=== PATIENT | female | born 1945 | race Caucasian/White ===

== ENCOUNTER → 2022-04-13 09:36 | Outpatient (CLI) | payer OTHER, SELFPAY ==
--- NOTE | ~2022-04-13 | XR_ITS ---
EXAM: XR_CERV2-3V_CR DATE: 04/13/2022 10:07 HISTORY: M54.2 - Cervicalgia . COMPARISON: None available. FINDINGS: Craniocervical association and atlantoaxial joint are intact. No prevertebral soft tissue swelling. 2 mm anterolisthesis at C3-4. 2 mm retrolisthesis at C5-6. Vertebral body heights are maint ained. Multilevel degenerative disc space narrowing and marginal osteophytosis, moderate at C5-6. Mul tilevel facet hypertrophy. IMPRESSION: Multilevel grade 1 listheses, detailed above. Multilevel degenerative disc disease, moder ate at C5-6. Multilevel facet arthropathy. Reviewed, dictated and finalized at location K. IMPRESSION: Multilevel grade 1 listheses, detailed above. Multilevel degenerati ve disc disease, moderate at C5-6. Multilevel facet arthropathy.
--- NOTE | ~2022-04-13 | XR_ITS ---
XR knee RT min 4V 04/13/2022 10:07 Indication: Right knee pain Procedure: 5 views right knee Comparison: No prior studies for comparison. Findings: There is moderate-severe osteoarthritis of the right knee. No fracture, subluxation or disl ocation. No significant joint effusion. Osteopenia. Impression: 1: Moderate-severe osteoarthritis of the right knee. Reviewed, dictated and finalized at location A. Impression: 1: Moderate-severe osteoarthritis of the right knee.
== END ==
PROVIDERS: PCP Clinical Nurse Specialist; Visit Provider Clinical Nurse Specialist
DX: M25.569 Pain in unspecified knee (principal); M47.812 Spondylosis without myelopathy or radiculopathy, cervical region; M50.322 Other cervical disc degeneration at C5-C6 level; M12.88 Other specific arthropathies, not elsewhere classified, other specified site; M17.11 Unilateral primary osteoarthritis, right knee
CPT/HCPCS: 72040; 73564

== ENCOUNTER 2022-04-27 08:08 | Outpatient (CLI) | payer OTHER, SELFPAY ==
--- NOTE | ~2022-04-27 | DEXA_ITS ---
Bone Density Report Name: MINNIE IBRAHIM Age: 76 Sex: Female Ethnicity: Date of : 1945 Indication: postmenopausal; screening for osteoporosis; Referring Provider: MARY TAYLOR Study: Bone densitometry was performed. Exam Date: April 27, 2022 Accession number: [id number] Bone Density: Region BMD T-score Z-score Classification AP Spine(L1, L2, L3) 0.844 -1.6 1.0 Osteopenia Femoral Neck (Left) 0.720 -1.2 1.1 Osteopenia Total Hip (Left) 0.895 -0.4 1.6 Normal Femoral Neck (Right) 0.727 -1.1 1.1 Osteopenia Total Hip (Right) 0.937 0.0 1.9 Normal Total Hip Mean 0.916 -0.2 1.8 Normal World Health Organization criteria for BMD impression classify patients as: Normal (T-score at or above -1.0), Osteopenia (T-score between -1.0 and -2.5), or Osteoporosis (T-score at or below -2.5). Clinical Information Provided by Patient: Has used the following medications: Vitamin D, Calcium Patient maximum height was 63 Menopause Age: 52 No regular weight bearing exercise Onset of menses at age 11 Number of children 4 Impression: The patient has low bone mass, based on the Total Spine T-score. Discussion: BONE DENSITY IS LOW AT ONE OR MORE SKELETAL SITES. This patient's lowest T-score is low at one or more skeletal sites. It meets the World Health Organization's (WHO) criteria for ?low bone mass? (T-score between -1.0 and -2.5). The patient's 10-year risk of fracture as calculated by FRAX is less than the threshold where pharmacological therapy is recommended by the National Osteoporosis Foundation (NOF). However, all treatment decisions require clinical judgment and consideration of individual patient factors, including patient preferences, comorbidities, previous drug use, risk factors not captured in the FRAX model (e.g., frailty, falls, vitamin D deficiency, increased bone turnover, interval significant decline in bone density) and possible under or overestimation of fracture risk by FRAX. The patient should follow a healthful lifestyle (good nutrition with adequate calcium and vitamin D, and appropriate weight-bearing exercise). Follow-Up: Consider repeating this study in 2 to 3 years to reassess this patient's status, or sooner if there is some new clinical indication. Reported by: ALEJANDRA on 05/01/2022 10:13:00 AM. Reviewed, dictated and finalized at location A. [employer] [facility]
== END 2022-04-27 08:09 | disposition home or self-care (01) ==
LOC: ANHIMG 08:13
PROVIDERS: PCP Clinical Nurse Specialist; Visit Provider Clinical Nurse Specialist
DX: Z78.0 Asymptomatic menopausal state (principal); M85.88 Other specified disorders of bone density and structure, other site; M85.852 Other specified disorders of bone density and structure, left thigh; M85.851 Other specified disorders of bone density and structure, right thigh
CPT/HCPCS: 77080

== ENCOUNTER 2022-11-27 20:18 | Observation (INO) | payer OTHER, SELFPAY ==
--- NOTE | ~2022-11-27 | CT_ITS ---
EXAMINATION: CT soft tissue neck w con DATE: 11/27/2022 22:37 INDICATION: Right-sided neck pain and swelling. TECHNIQUE: Computed tomography (CT) of the neck was performed with 75 mL Omnipaque-350 intravenous co ntrast. Automated exposure control and iterative reconstruction technique were employed. The dose-xavier gth product was 567.86 mGy-cm. COMPARISON: None FINDINGS: The thyroid gland is unremarkable. Mild enlargement and hyperenhancement of the right parotid gland . No parotid mass or calcification detected. Asymmetric submandibular glands. There is no cervical l ymphadenopathy. There are no masses identified. The superior mediastinum is unremarkable. The a irway is unremarkable. Parapharyngeal and pre-glottic fat planes are preserved. Mild arch ectasia and calcification. Ulcerative plaques present within the aortic arch. The orbits are unremarkable. Visualized sinuses and mastoid air cells are well aerated. Biapical pleural scarring. Mosaic atte nuation in the lungs. There is cervical spondylosis. IMPRESSION: 1. Right parotiditis. 2. Mosaic attenuation in the lungs which can be seen with asthma, bronchiolitis obliterans, hypersens itivity pneumonitis, and chronic thromboembolic disease. Reviewed, dictated and finalized at location K. IMPRESSION: 1. Right parotiditis. 2. Mosaic attenuation in the lungs which can be seen with asthma, bronchiolitis obliterans, hypersensitivity pneumonitis, and chronic thromboembolic disease.
[2022-11-27 20:22] VITALS: BP 139/67; PULSE 80; RESP 18; TEMP 36.4; O2SAT 96
[2022-11-27 21:16] VITALS: BP 118/62; PULSE 79; O2SAT 96
[2022-11-27 21:31] VITALS: BP 117/64; PULSE 78; O2SAT 94
[2022-11-27 21:49] LABS: Basophils Percent Auto 0.5 % (0.2-1.2); Eosinophils Absolute Auto 0.2 K/mm3 (0-0.3); Eosinophils Percent Auto 2.1 % (0-4.4); Hematocrit 41.4 % (37.0-47.0); Hemoglobin 13.8 g/dL (12.0-15.0); Immature Granulocyte Absolute 0.02 K/mm3 (0.00-0.031); Immature Granulocyte Percent A 0.2 % (0-0.5); Lymphocytes Absolute Auto 2.03 K/mm3 (0.9-3.2); Lymphocytes Percent Auto 24.9 % (18.3-44.2); Mean Corpuscular HGB Conc 33.3 g/dl (32-36); Mean Corpuscular Volume 96.1 fl (80-100); Monocytes Absolute Auto 0.5 K/mm3 (0.1-0.6); Monocytes Percent Auto 6.3 % (2.6-8.5); Neutrophils Absolute Auto 5.4 K/mm3 (1.3-6.7); Platelet Count Result 207 k/mm3 (150-375); Red Blood Count 4.31 M/mm3 (4.2-5.4); Red Cell Distribution Width 12.3 % (11.5-14.5); White Blood Count 8.2 K/mm3 (4.5-10.0)
[2022-11-27 21:59] LABS: Partial Thromboplastin Time 25.4 SECONDS (22.3-36.8); Prothrombin Time 13.7 Seconds (11.1-14.7)
[2022-11-27 22:01] VITALS: BP 117/65; O2SAT 93
[2022-11-27 22:03] LABS: Lactic Acid Reflex 3.1 mmol/L (0.7-2.0)
[2022-11-27 22:13] LABS: Alanine Aminotransferase 36 U/L (6-35); Albumin Level 4.5 g/dL (3.5-5.1); Alkaline Phosphatase 48 U/L (38-126); Anion Gap 13 mmol/L (8-16); Aspartate Amino Transferase 32 U/L (14-36); Bilirubin,Total 0.6 mg/dL (0.2-1.3); Blood Urea Nitrogen 21 mg/dL (7-17); Carbon Dioxide 24 mmol/L (22-30); Chloride 105 mmol/L (98-107); Estimated CRCL calculation 66 ml/min; Estimated Glomerular Filt Rate > 60; Glucose 168 mg/dL (65-110); Potassium 3.4 mmol/L (3.4-5.0); Sodium 142 mmol/L (137-145)
[2022-11-27 22:16] VITALS: BP 126/69; O2SAT 93
--- NOTE | 2022-11-27 23:08 | PM.IMHP ---
H&P: HPI History of Present Illness Date/Time: 11/27/22 23:08 Chief Complaint: Right neck pain Narrative: This is a 77-year-old female with past medical history significant for hypertension, glaucoma, dyslipidemia. Patient was brought to the emergency room for evaluation by her son due to right side of her neck tissue swelling and pain with swallowing of 1 day duration. According to son who is at bedside were who has provided all the history and has translated for his mom she has been her usual state of health, no fevers, no rigors, no chills ,no cough, no sputum production, no nausea, no vomiting, no diarrhea, no abdominal pain, no chest pain. However while patient was still in the emergency room ambulated to the bathroom upon returning to her stretcher complained of retrosternal chest pain with jaw pain and her heart rate was in the 100 and 50s she was found to have AFib a flutter placed on Cardizem drip and admitted to IMU. Preliminary workup was significant for CT of soft tissue of the neck was reported as: EXAMINATION: CT soft tissue neck w con DATE: 11/27/2022 22:37 INDICATION: Right-sided neck pain and swelling. TECHNIQUE: Computed tomography (CT) of the neck was performed with 75 mL Omnipaque-350 intravenous contrast. Automated exposure control and iterative reconstruction technique were employed. The dose-length product was 567.86 mGy-cm. COMPARISON: None FINDINGS: The thyroid gland is unremarkable. ? Mild enlargement and hyperenhancement of the right parotid gland. No parotid mass or calcification detected. Asymmetric submandibular glands.? There is no cervical lymphadenopathy.? There are no masses identified.? ? The superior mediastinum is unremarkable. ? The airway is unremarkable. ? Parapharyngeal and pre-glottic fat planes are preserved. ? Mild arch ectasia and calcification. Ulcerative plaques present within the aortic arch.? The orbits are unremarkable. ? Visualized sinuses and mastoid air cells are well aerated. ? Biapical pleural scarring. Mosaic attenuation in the lungs.? There is cervical spondylosis. IMPRESSION: 1. Right parotiditis. 2. Mosaic attenuation in the lungs which can be seen with asthma, bronchiolitis obliterans, hypersensitivity pneumonitis, and chronic thromboembolic disease. Review of Systems Review of Systems: Right-side of the neck swelling tenderness and pain with swallowing Constitutional: Constitutional: Denies chills, Denies fever(s) and Denies night sweats Eyes: Eyes: Denies change in vision ENT: Reports system reviewed and no additional complaints, except as documented, Reports as per HPI, Denies nasal congestion, Denies nasal discharge, Denies nasal obstruction, Reports neck mass, Reports neck pain and Reports odynophagia Cardiovascular: Cardiovascular: Reports chest pain, Reports irregular heart rhythm, Reports radiating jaw, neck or arm pain, Reports palpitations and Reports dyspnea Respiratory: Respiratory: Denies chest congestion, Denies cough and Denies pain on inspiration Gastrointestinal: Gastrointestinal: Denies abdominal pain, Denies dyspepsia, Denies heartburn, Denies diarrhea, Denies nausea and Denies vomiting Genitourinary: Genitourinary: Reports no additional female genitourinary complaints, Reports as per HPI and Denies dysuria Musculoskeletal: Musculoskeletal: Reports joint swelling and Reports other (Ambulates with cane) Integumentary/Breasts: Skin/Breast: Denies rash Neurologic: Denies focal weakness and Denies Sensory deficit (Neuro) Psychiatric: Psychiatric: Reports no additional psychiatric complaints and Reports as per HPI Endocrine: Endocrine: Denies cold intolerance, Denies flushing, Denies heat intolerance, Denies polyphagia, Denies polydipsia and Denies palpitations Hematologic/Lymphatic: Hematologic/Lymphatic: Reports no additional hematologic/lymphatic complaints and Reports as per HPI Allergic/Immunologic: Allergic/Immunologic: Reports no additio
--- NOTE | 2022-11-27 23:08 | ED.GENADULT ---
HPI - General Adult General Chief complaint: Neck Pain/Injury Stated complaint: right neck pain, headache Time Seen by Provider: 11/27/22 20:59 History of Present Illness HPI narrative: Patient 77-year-old female who presents the emergency department with chief complaint of right-sided neck swelling. Patient reports that throughout the day she noticed the right side of her neck area started getting painful and started swelling the patient also reports it felt warm to touch patient denies fever denies difficulty swallowing denies shortness of breath Related Data Home Medications Medication Instructions Recorded Confirmed aspirin 81 mg tablet,delayed 81 mg PO DAILY 01/13/21 06/22/22 release (Adult Low Dose Aspirin) Allergies Allergy/AdvReac Type Severity Reaction Status Date / Time fish oil AdvReac upset Verified 06/22/22 09:01 stomach Review of Systems Review of Systems: A 10 system review of systems was completed on the patient and is negative except for what is stated in the HPI. Nursing and ancillary documentation was reviewed. PMFSH Social History Social History Smoking status: Never smoker Alcohol intake: never Exam Narrative: GENERAL: Well-appearing, well-nourished, and in no acute distress. HEAD: Normocephalic, atraumatic. EYES: PERRLA and EOMI. ENT: Nares clear, no rhinorrhea or epistaxis. Mucous membranes moist. NECK: Supple. Tenderness and swelling on the right side of the neck just inferior to the mandible no crepitance no fluctuance CHEST: Clear to auscultation. No respiratory distress. HEART: Regular rate and rhythm. No murmur heard. Normal peripheral pulses. ABDOMEN: Soft, nontender, nondistended, normal active bowel sounds. EXTREMITIES: Normal range of motion. No edema. SKIN: Warm, dry, no rash. NEURO: No focal deficits. Alert and oriented x3. PSYCH: Normal mood and affect. Course Vital Signs Vital signs: Vital Signs Temperature 36.4 C 11/27/22 20:22 Pulse Rate 80 11/27/22 20:22 Respiratory Rate 18 11/27/22 20:22 Blood Pressure 139/67 11/27/22 20:22 Pulse Oximetry 96 11/27/22 20:22 Oxygen Delivery Room Air 11/27/22 20:22 Temperature 36.4 C 11/27/22 20:22 Pulse Rate 78 11/27/22 21:31 Respiratory Rate 18 11/27/22 20:22 Blood Pressure 117/64 11/27/22 21:31 Pulse Oximetry 94 11/27/22 21:31 Oxygen Delivery Room Air 11/27/22 20:22 Medical Decision Making MDM Narrative Medical decision making narrative: Differential diagnosis includes deep tissue abscess, parotiditis, retropharyngeal abscess, tumor, Laboratory studies were obtained which showed a normal CBC electrolytes were within normal's lactate was 3.1 Blood cultures were obtained and the patient was started on [address] scan showed evidence of parotiditis without evidence of airway compromise. Patient patient's case was discussed with the hospitalist and the patient will be admitted for IV antibiotics and observation Vital Signs Vital Signs: Vital Signs Temperature 36.4 C 11/27/22 20:22 Pulse Rate 80 11/27/22 20:22 Respiratory Rate 18 11/27/22 20:22 Blood Pressure 139/67 11/27/22 20:22 Pulse Oximetry 96 11/27/22 20:22 Oxygen Delivery Room Air 11/27/22 20:22 Temperature 36.4 C 11/27/22 20:22 Pulse Rate 78 11/27/22 21:31 Respiratory Rate 18 11/27/22 20:22 Blood Pressure 117/64 11/27/22 21:31 Pulse Oximetry 94 11/27/22 21:31 Oxygen Delivery Room Air 11/27/22 20:22 Lab Data 11/27/22 21:27 11/27/22 21:27 Labs: Lab Results 11/27/22 Range/Units 21:27 WBC 8.2 (4.5-10.0) K/mm3 RBC 4.31 (4.2-5.4) M/mm3 Hgb 13.8 (12.0-15.0) g/dL Hct 41.4 (37.0-47.0) % MCV 96.1 (80-100) fl MCH 32.0 (26-34) pg MCHC 33.3 (32-36) g/dl RDW 12.3 (11.5-14.5) % Plt Count 207 (150-375) k/mm3 MPV
[2022-11-28] VITALS (23 sets, daily range): BP systolic 94–147; BP diastolic 43–91; PULSE 68–152; RESP 13–24; TEMP 36.1–36.8; O2SAT 93–98; BMI 30.4
--- NOTE | 2022-11-28 00:06 | ECG_ITS ---
Measurements Intervals Silex Rate: 134 P: AL: 0 QRS: -28 QRSD: 89 T: -60 QT: 187 QTc: 280 Interpretive Statements ATRIAL FIBRILLATION WITH RAPID VENTRICULAR RESPONSE BORDERLINE R WAVE PROGRESSION, ANTERIOR LEADS BORDERLINE ST-T WAVE ABNORMALITY- ANT/INF LEADS BASELINE ARTIFACT- I, II, III, AVR, AVL, AVF ABNORMAL ECG NO PREVIOUS ECG AVAILABLE FOR COMPARISON Electronically Signed On 12-02-2022 7:50:54 CDT by Dae Wilson D.O.
[2022-11-28] MEDS: dilTIAZem 100 MG/100 ML 100 MG/100 ML BAG IV CONT (00:29)
[2022-11-28] MEDS: dilTIAZem HCl INJ 25 MG/5 ML VIAL 20 MG IV PUSH (00:29)
[2022-11-28 00:47] LABS: Reflex Lactic Acid Yes or No Add Lactic
[2022-11-28] MEDS: AMPICILLIN SULB 3 GM/NS 100 ML 3 GM/100 ML VIAL IVPB ×4 (02:04→20:14)
--- NOTE | 2022-11-28 02:14 | ADMGEN ---
This patient, Maritza Elias, was admitted to IMU Room [id number]. Patient/family oriented to hospital policies and general routines including ID bracelet, bed and alarms, visiting hours, pain management, procedures, bathroom and other care routines, personal items, smoking policy, room service/diet, and visiting hours. Information on how to activate the Rapid Response Team has been discussed. Patient/Family are encouraged to report perceived risks to care and to ask questions if they do not understand what they are told or what they should do.
--- NOTE | 2022-11-28 02:34 | ADMGEN ---
This patient, Maritza Elias, was admitted to IMU Room 205-02. Patient/family oriented to hospital policies and general routines including ID bracelet, bed and alarms, visiting hours, pain management, procedures, bathroom and other care routines, personal items, smoking policy, room service/diet, and visiting hours. Information on how to activate the Rapid Response Team has been discussed. Patient/Family are encouraged to report perceived risks to care and to ask questions if they do not understand what they are told or what they should do.
[2022-11-28] MEDS: dilTIAZem 100 MG/100 ML 100 MG/100 ML BAG 10 MG IV CONT ×2 (02:36→06:19)
[2022-11-28] MEDS: ACETAMINOPHEN 500 MG TABLET 1000 MG PO ×2 (03:51→10:32)
[2022-11-28 04:16] LABS: Troponin I < 0.012 ng/mL (0.000-0.034)
[2022-11-28 04:40] LABS: Lactic Acid 1.6 mmol/L (0.7-2.0)
[2022-11-28] MEDS: ENOXAPARIN 80 MG/0.8 ML SYRINGE SUB-Q (06:19)
[2022-11-28 06:53] LABS: Troponin I < 0.012 ng/mL (0.000-0.034)
[2022-11-28] MEDS: TIMOLOL MALEATE 0.5% OP SOLN 5 ML BOTTLE 1 DROP EACH EYE ×2 (09:15→20:15)
[2022-11-28] MEDS: DORZOLAMIDE HCL 2% OPHTH DROPS 1 DROP EACH EYE ×2 (09:15→20:15)
[2022-11-28] MEDS: LOSARTAN POTASSIUM 50 MG TABLET PO (09:15)
[2022-11-28] MEDS: hydroCHLOROthiazide 25 MG TABLET PO (09:15)
[2022-11-28 10:10] LABS: Troponin I < 0.012 ng/mL (0.000-0.034)
--- NOTE | 2022-11-28 12:08 | PM.IMPN ---
Progress Note: A&P Assessment and Plan (1) Atrial fibrillation with rapid ventricular response: Code(s): I48.91 - Unspecified atrial fibrillation Status: Acute Assessment and Plan: Admit to IMU On Cardizem drip Echocardiogram in a.m. Cardiology consult Continue to monitor Seemingly new onset (2) Acute parotitis: Code(s): K11.21 - Acute sialoadenitis Status: Acute Assessment and Plan: Started on Unasyn ENT consult in progress (3) DJD (degenerative joint disease) of knee: Code(s): M17.9 - Osteoarthritis of knee, unspecified Status: Acute Assessment and Plan: Tylenol as needed (4) Essential hypertension: Code(s): I10 - Essential (primary) hypertension Status: Acute Assessment and Plan: Continue losartan and hydrochlorothiazide Continue to monitor (5) Glaucoma: Code(s): H40.9 - Unspecified glaucoma Status: Acute Assessment and Plan: Continue timolol and dorzolamide Subjective Date/time seen: 11/28/22 12:08 Interval history: No new complaints Exam Narrative: Patient is laying in a stretcher Const: General: comfortable, no acute distress, well developed, alert, awake and average body habitus Nutritional Appearance: average body habitus Orientation/consciousness: patient oriented x3 HENMT: Head: normal to inspection, normocephalic and atraumatic Ears: hearing grossly normal bilaterally Face/Nose/Sinus: normal facial exam Face and sinus: normal facial exam Eyes: General: appearance normal, both eyes and all related structures Pupils: Equal, round and reactive pupils present EOM: EOMs intact bilaterally Neck: Neck: full ROM, no lymphadenopathy and no JVD Thyroid: thyroid normal Lymphatic: no lymphadenopathy noted Other: Pain and swelling cephalad anterior lateral below angle of the jaw Resp: Effort & Inspection: normal respiratory effort and able to speak in complete sentences Auscultation: clear to auscultation bilaterally Cardio: Jugular venous distension: no JVD Rate: regular rate Rhythm: regular rhythm Heart sounds: S1 normal heart sound present and S2 normal heart sound present : General: Yes deferred Skin: Rashes: no rashes Wounds: no wounds Neuro: General: patient oriented x3 and CN's II-XI intact bilaterally Cranial nerves: Yes CN's II-XII intact bilaterally and Yes Equal, round and reactive pupils present Cognition (Neuro): normal cognition Speech: normal speech Gait exam (Neuro): Normal gait present Motor exam (neuro): 5/5 motor strength present throughout Sensory Exam: No Sensory deficit (Neuro) Other: Uses cane as an aide Extrem: General: normal to inspection, full ROM, no joint enlargement and no pedal edema Objective Data Vital Signs Vital Signs: Vital Signs - 24 hr 11/27/22 20:22 11/27/22 21:16 11/27/22 21:31 Temperature 97.6 F Pulse Rate 80 79 78 Respiratory Rate 18 Blood Pressure 139/67 118/62 117/64 Pulse Oximetry 96 96 94 Oxygen Delivery Room Air 11/28/22 00:29 11/27/22 22:01 11/27/22 22:16 Temperature Pulse Rate 152 H Respiratory Rate Blood Pressure 147/70 H 117/65 126/69 Pulse Oximetry 93 93 Oxygen Delivery 11/28/22 00:18 11/28/22 00:34 11/28/22 01:01 Temperature Pulse Rate 141 H 116 H 102 H Respiratory Rate 18 15 23 H Blood Pressure 113/79 Pulse Oximetry 96 94 93 Oxygen Delivery 11/28/22 01:14 11/28/22 01:16 11/28/22 01:46 Temperature Pulse Rate 133 H 121 H 117 H Respiratory Rate 24 H 13 22 H Blood Pressure 127/91 H 104/73 Pulse Oximetry 94 95 94 Oxygen Delivery 11/28/22 01:56 11/28/22 02:01 11/28/22 02:15 Temperature 97.1 F L Pulse Rate 128 H 112 H 143 H Respiratory Rate 16 21 H 16 Blood Pressure 107/73 109/77 117/81 Pulse Oximetry 96 93 98 Oxygen Delivery 11/28/22 02:36 11/28/22 03:02 11/28/22 03:02 Temperature Pulse Rate 150 H 150 H 150 H Respiratory Rate 16 B
[2022-11-28] MEDS: dilTIAZem 100 MG/100 ML 100 MG/100 ML BAG 15 MG IV CONT (14:18)
--- NOTE | 2022-11-28 14:49 | PM.CNCAR ---
Assessment and Plan Assessment and plan (1) Atrial fibrillation with rapid ventricular response: Code(s): I48.91 - Unspecified atrial fibrillation Status: Acute Plan AF with RVR in setting of parotitis HTN controlled Plan Eliquis 5 mg po BID Diltiazem 60 mg QID History of Present Illness History of Present Illness Consult date/time: 11/28/22 14:49 Reason For Visit: acute parotitis Narrative: Patient speaks Bulgarian and limited ability for communication. She presented with right side neck pain and swelling with tenderness. Pain is sever and worse with eating and moving neck. She was found ot have AF and started in diltiazem infusion currently at 15 mg per hour. She had no chest pain or palpitations. Review of Systems Review of Systems: 12 points review of system is negative except stated above. [facility] Social History Social History Smoking status: Never smoker Alcohol intake: never Substance use: never Substance use type: does not use Lack of Transportation: No Lack of Food: Never True Current Housing: I Have Housing Concerned About Future Housing: No Difficulty Paying Gas/Electric Bills: No Difficulty Paying for Meds: No Currently Unemployed: No Education: Grade School Difficulty w/ Childcare or Family Care: No Spiritual care concerns: No Meds Home Medications and Allergies Home Medications Medication Instructions Recorded Confirmed Type atorvastatin 10 mg tablet 10 mg PO QHS #30 tabs 10/13/21 11/28/22 Rx acetaminophen 650 mg 650 mg PO Q8H PRN Pain (Scale 11/28/22 11/28/22 History tablet,extended release (Tylenol Score 4-6) Arthritis Pain) cholecalciferol (vitamin D3) 1,250 50,000 unit PO WEEKLY 11/28/22 11/28/22 History mcg (50,000 unit) capsule dorzolamide 2 % eye drops 1 drp EACH EYE Q12H 11/28/22 11/28/22 History hydrochlorothiazide 25 mg tablet 25 mg PO DAILY 11/28/22 11/28/22 History losartan 50 mg tablet 50 mg PO DAILY 11/28/22 11/28/22 History timolol maleate 0.5 % eye drops 1 drp EACH EYE Q12H 11/28/22 11/28/22 History Allergies Allergy/AdvReac Type Severity Reaction Status Date / Time fish oil AdvReac upset Verified 06/22/22 09:01 stomach Vital Signs Vital Signs - 24 hr 11/27/22 20:22 11/27/22 21:16 11/27/22 21:31 Temperature 36.4 C Pulse Rate 80 79 78 Respiratory Rate 18 Blood Pressure 139/67 118/62 117/64 Pulse Oximetry 96 96 94 Oxygen Delivery Room Air 11/28/22 00:29 11/27/22 22:01 11/27/22 22:16 Temperature Pulse Rate 152 H Respiratory Rate Blood Pressure 147/70 H 117/65 126/69 Pulse Oximetry 93 93 Oxygen Delivery 11/28/22 00:18 11/28/22 00:34 11/28/22 01:01 Temperature Pulse Rate 141 H 116 H 102 H Respiratory Rate 18 15 23 H Blood Pressure 113/79 Pulse Oximetry 96 94 93 Oxygen Delivery 11/28/22 01:14 11/28/22 01:16 11/28/22 01:46 Temperature Pulse Rate 133 H 121 H 117 H Respiratory Rate 24 H 13 22 H Blood Pressure 127/91 H 104/73 Pulse Oximetry 94 95 94 Oxygen Delivery 11/28/22 01:56 11/28/22 02:01 11/28/22 02:15 Temperature 36.2 C L Pulse Rate 128 H 112 H 143 H Respiratory Rate 16 21 H 16 Blood Pressure 107/73 109/77 117/81 Pulse Oximetry 96 93 98 Oxygen Delivery 11/28/22 02:36 11/28/22 03:02 11/28/22 03:02 Temperature Pulse Rate 150 H 150 H 150 H Respiratory Rate 16 Blood Pressure Pulse Oximetry 98 Oxygen Delivery Room Air 11/28/22 04:00 11/28/22 04:00 11/28/22 04:00 Temperature 36.1 C L Pulse Rate 144 H 144 H 68 Respiratory Rate 16 16 Blood Pressure 115/69 Pulse Oximetry 98 96 Oxygen Delivery Room Air 11/28/22 06:00 11/28/22 06:19 11/28/22 08:00 Temperature 36.2 C L Pulse Rate 113 H 113 H 108 H Respiratory Rate 16 Blood Pressure 106/63 Pulse Oximetry 95 Oxygen Delivery 11/28/22 12:00 11/28/22 08:00
[2022-11-28] MEDS: dilTIAZem HCL 60 MG TABLET PO ×2 (15:00→20:15)
[2022-11-28] MEDS: ATORVASTATIN 10 MG TABLET PO (20:14)
[2022-11-29] VITALS (7 sets, daily range): BP systolic 95–120; BP diastolic 52–60; PULSE 71–83; RESP 16–20; TEMP 35.4–36.6; O2SAT 94–97
[2022-11-29] MEDS: AMPICILLIN SULB 3 GM/NS 100 ML 3 GM/100 ML VIAL IVPB ×2 (02:08→09:17)
[2022-11-29] MEDS: hydroCHLOROthiazide 25 MG TABLET PO (09:17)
[2022-11-29] MEDS: DORZOLAMIDE HCL 2% OPHTH DROPS 1 DROP EACH EYE (09:17)
[2022-11-29] MEDS: LOSARTAN POTASSIUM 50 MG TABLET PO (09:17)
[2022-11-29] MEDS: dilTIAZem HCL 60 MG TABLET PO (09:17)
[2022-11-29] MEDS: TIMOLOL MALEATE 0.5% OP SOLN 5 ML BOTTLE 1 DROP EACH EYE (09:18)
[2022-11-29] MEDS: ACETAMINOPHEN 500 MG TABLET 1000 MG PO (09:52)
--- NOTE | 2022-11-29 11:11 | PM.DS ---
DS: Admitting Diagnosis Discharge Date November 29, 2022 Admitting Diagnosis Parotiditis DS: Discharge Diagnosis Discharge Diagnosis (1) Atrial fibrillation with rapid ventricular response: Code(s): I48.91 - Unspecified atrial fibrillation Status: Acute Assessment and Plan: Admit to IMU On Cardizem drip Echocardiogram in a.m. Cardiology consult Continue to monitor Seemingly new onset (2) Acute parotitis: Code(s): K11.21 - Acute sialoadenitis Status: Acute Assessment and Plan: Started on Unasyn ENT consult in progress (3) DJD (degenerative joint disease) of knee: Code(s): M17.9 - Osteoarthritis of knee, unspecified Status: Acute Assessment and Plan: Tylenol as needed (4) Essential hypertension: Code(s): I10 - Essential (primary) hypertension Status: Acute Assessment and Plan: Continue losartan and hydrochlorothiazide Continue to monitor (5) Glaucoma: Code(s): H40.9 - Unspecified glaucoma Status: Acute Assessment and Plan: Continue timolol and dorzolamide DS: Summary Hospital Course Hospital Course: Admitted for parotiditis and AFib. Her rate now controlled. New cardiac medicines on discharge. Otherwise she can follow-up with Cardiology. Antibiotics on discharge and will need to follow up with ENT Time Spent with Patient Time attestation: Total time spent providing and/or coordinating discharge services: Exam Narrative: Patient is laying in a stretcher Const: General: comfortable, no acute distress, well developed, alert, awake and average body habitus Nutritional Appearance: average body habitus Orientation/consciousness: patient oriented x3 HENMT: Head: normal to inspection, normocephalic and atraumatic Ears: hearing grossly normal bilaterally Face/Nose/Sinus: normal facial exam Face and sinus: normal facial exam Eyes: General: appearance normal, both eyes and all related structures Pupils: Equal, round and reactive pupils present EOM: EOMs intact bilaterally Neck: Neck: full ROM, no lymphadenopathy and no JVD Thyroid: thyroid normal Lymphatic: no lymphadenopathy noted Other: Pain and swelling cephalad anterior lateral below angle of the jaw Resp: Effort & Inspection: normal respiratory effort and able to speak in complete sentences Auscultation: clear to auscultation bilaterally Cardio: Jugular venous distension: no JVD Rate: regular rate Rhythm: regular rhythm Heart sounds: S1 normal heart sound present and S2 normal heart sound present : General: Yes deferred Skin: Rashes: no rashes Wounds: no wounds Neuro: General: patient oriented x3 and CN's II-XI intact bilaterally Cranial nerves: Yes CN's II-XII intact bilaterally and Yes Equal, round and reactive pupils present Cognition (Neuro): normal cognition Speech: normal speech Gait exam (Neuro): Normal gait present Motor exam (neuro): 5/5 motor strength present throughout Sensory Exam: No Sensory deficit (Neuro) Other: Uses cane as an aide Extrem: General: normal to inspection, full ROM, no joint enlargement and no pedal edema DS: Data Data Completed and Pending Labs on day of discharge: Preliminary micro results at discharge 11/27/22 23:53 Blood Culture - Preliminary Blood 11/27/22 23:53 Blood Culture - Preliminary Blood Discharge Plan Discharge Attending physician on discharge: Kali Horn Consulting providers: Arnol Lim; Faheem Guillen Discharging Clinician: Kali Horn Patient Disposition: Home, Self-Care Activity: no preference Diet: as tolerated Patient Instructions: Antibiotic Form Stand Alone Forms: General Discharge Information Follow-up/Referrals: Faheem Guillen MD [Physician] - Arnol Lim MD [Physician] - Discharge Medications: New amoxicillin-pot clavulanate 875-125 mg tablet 1 tablet PO Q12H 5 Days Qty: 10 0RF Continued ivelisse
--- NOTE | 2022-11-29 11:11 | PM.PNCARD ---
Progress Note: A&P Assessment and Plan (1) Atrial fibrillation with rapid ventricular response: Code(s): I48.91 - Unspecified atrial fibrillation Status: Acute Plan Paroxysmal AF converted to SR plan Diltiazem 180 mg per day Eliquis 5 mg po BID Subjective Date/time seen: 11/29/22 11:11 Interval history: no acute events converted to SR today Review of Systems Review of Systems: 12 points review of system is negative Exam Const: General: comfortable and no acute distress Other: Able to lie flat HENMT: Face/Nose/Sinus: Normal nares present and no epistaxis Mouth: Yes moist mucous membranes Eyes: Sclera: sclerae normal Pupils: Equal, round and reactive pupils present Neck: Neck: supple and no JVD Carotids: no bruits Resp: Auscultation: clear to auscultation bilaterally and lung sounds not diminished Other: No chest wall tenderness Cardio: Rate: regular rate Rhythm: regular rhythm Heart sounds: no gallops, no murmurs and no rubs GI: GI Palp: Yes Soft to palpation and No Tenderness to palpation present (GI) Auscultation: normal bowel sounds Skin: General skin exam: normal color, rashes and/or lesions noted and no erythema Other: Warm Neuro: Cranial nerves: Yes Equal, round and reactive pupils present Speech: normal speech Other: No obvious focal deficit or facial asymmetry Extrem: General: no edema Other: Normal capillary refills Intact distal pulses. Objective Data Vital Signs Vital Signs: Vital Signs - 24 hr 11/28/22 12:00 11/28/22 12:00 11/28/22 12:00 Temperature 36.4 C Pulse Rate 87 86 Respiratory Rate 18 Blood Pressure 94/43 L Pulse Oximetry 95 Oxygen Delivery Room Air 11/28/22 16:00 11/28/22 14:00 11/28/22 16:00 Temperature Pulse Rate 79 77 Respiratory Rate Blood Pressure Pulse Oximetry Oxygen Delivery Room Air 11/28/22 16:00 11/28/22 18:00 11/28/22 20:00 Temperature 36.8 C 36.2 C L Pulse Rate 94 80 83 Respiratory Rate 16 18 Blood Pressure 101/50 L 121/56 L Pulse Oximetry 94 94 Oxygen Delivery 11/28/22 20:00 11/28/22 20:00 11/28/22 22:00 Temperature Pulse Rate 85 76 Respiratory Rate Blood Pressure Pulse Oximetry 94 Oxygen Delivery Room Air 11/29/22 00:00 11/29/22 00:00 11/29/22 00:00 Temperature 36.6 C Pulse Rate 77 73 Respiratory Rate 16 Blood Pressure 120/52 L Pulse Oximetry 97 97 Oxygen Delivery Room Air 11/29/22 02:00 11/29/22 04:00 11/29/22 04:00 Temperature Pulse Rate 73 71 Respiratory Rate Blood Pressure Pulse Oximetry 97 Oxygen Delivery Room Air 11/29/22 04:00 11/29/22 06:00 11/29/22 08:00 Temperature 36.5 C 35.4 C L Pulse Rate 72 71 81 Respiratory Rate 16 20 Blood Pressure 95/54 L 113/60 Pulse Oximetry 94 94 Oxygen Delivery 11/29/22 08:00 11/29/22 08:00 11/29/22 10:00 Temperature Pulse Rate 83 78 Respiratory Rate Blood Pressure Pulse Oximetry Oxygen Delivery Room Air Intake/Output Intake/Output: Intake & Output 11/26/22 11/27/22 11/28/22 11/29/22 23:59 23:59 23:59 23:59 Intake Total 1710 1040 Output Total 850 400 Balance 860 640 Meds/Results Medications: Active Medications Generic Name Dose Route Start Last Admin Trade Name Freq PRN Reason Stop Dose Admin Acetaminophen 1,000 mg 11/28/22 00:23 11/29/22 09:52 Acetaminophen 500 Mg Tablet PO 1,000 mg Q6H PRN Administration Mild Pain (1-3) or Fever Acetaminophen 650 mg 11/28/22 08:36 Acetaminophen 325 Mg Tablet PO Q8H PRN Pain (Scale Score 4-6) Apixaban 5 mg 11/29/22 21:00 Apixaban 5 Mg Tablet PO Q12HR ARIAN Atorvastatin Calcium 10 mg 11/28/22 21:00 11/28/22 20:14 Atorvastatin 10 Mg Tablet PO 10 mg QHS ARIAN Administration Diltiazem HCl 180 mg 11/30/22 09:00 Diltiazem Hcl Cd 180 Mg Cap.Er.24h PO QAM ARIAN Dorzolamide H
== END 2022-11-29 12:34 | disposition home or self-care (01) ==
LOC: ANHED 23:11 → ANH2MED 11-28 01:58 → ANHIMU 11-28 03:13 → ANH2MED 11-30 14:19 → ANHIMU 11-30 14:19
PROVIDERS: Admitting Provider Internal Medicine; Emergency Provider Emergency Medicine; PCP Clinical Nurse Specialist; Visit Provider Chiropractor
DX: I48.91 Unspecified atrial fibrillation (principal); K11.21 Acute sialoadenitis; M17.9 Osteoarthritis of knee, unspecified; I10 Essential (primary) hypertension; H40.9 Unspecified glaucoma; R94.31 Abnormal electrocardiogram [ECG] [EKG]; R13.10 Dysphagia, unspecified; R91.8 Other nonspecific abnormal finding of lung field; E78.5 Hyperlipidemia, unspecified; Z79.82 Long term (current) use of aspirin; Z79.1 Long term (current) use of non-steroidal anti-inflammatories (NSAID); Z79.899 Other long term (current) drug therapy
CPT/HCPCS: 36415; 70491; 80053; 83605; 84484; 85025; 85610; 85730; 87040; 93005; 96365; 96366; 96368; 96376; 99285; A9270; G0378; G0379; J0295; J1650; Q9967

== ENCOUNTER 2023-08-26 07:48 | Outpatient (CLI) | payer OTHER, SELFPAY ==
--- NOTE | 2023-08-26 08:04 | ECHO_ITS ---
Patient Info Name: Maritza Elias Age: 77 years : 1945 Gender: Female Ht: 64 in Wt: 172 lbs BSA: 1.90 m2 HR: 71 bpm BP: 120 / 64 mmHg Technical Quality: Fair Exam Date: 08/26/2023 8:10 AM Exam Location: Echo Lab Patient Status: Outpatient Admit Date: 08/26/2023 Staff Ordering Physician: Pinky Canales Attending Provider: Dae Wilson DO Referring Physician: Parker BLACKBURN; Exam Type: CA echo doppler color flow Study Info Indications I48.0 - Paroxysmal atrial fibrillation Complete two-dimensional, color flow and Doppler transthoracic echocardiogram is performed. Summary 1. Complete two-dimensional, color flow and Doppler transthoracic echocardiogram is performed. 2. Left ventricular chamber dimension is normal. 3. Left ventricular systolic function is normal, estimated at 60-65%. 4. The left ventricular diastolic function is grade I diastolic dysfunction. 5. E/e' 10 is mildly elevated. 6. There is mild aortic valve sclerosis. 7. There is trace aortic valve regurgitation. Left Ventricle E/e' 10 is mildly elevated. Left ventricular chamber dimension is normal. Left ventricular systolic function is normal, estimated at 60-65%. The left ventricular diastolic function is grade I diastolic dysfunction. Right Ventricle Right ventricular systolic function is normal and with normal TAPSE 2.0 cm. Right ventricular chamber dimension is normal. Left Atria Left atrial chamber dimension is normal. Right Atria Right atrial chamber dimension is normal. Aortic Valve The aortic valve is trileaflet. There is mild aortic valve sclerosis. There is no aortic valve stenosis. There is trace aortic valve regurgitation. Pulmonic Valve There is no pulmonic regurgitation. Mitral Valve There is no mitral valve stenosis. There is no mitral valve regurgitation. Tricuspid Valve There is no tricuspid valve regurgitation. Pericardium/Pleural There is no pericardial effusion. Inferior Vena Cava Normal inferior vena cava with >50% collapse upon inspiration consistent with normal right atrial pressure, 5 mmHg. Aorta The aortic root size at the sinus of Valsalva is normal. Left Ventricular Outflow Tract Name Value Normal LVOT 2D LVOT Diameter 2.2 cm LVOT Doppler LVOT Peak Gradient 3 mmHg LVOT Mean Gradient 1 mmHg LVOT VTI 20 cm LVOT VTI/AV VTI Ratio 0.6 LVOT Stroke Volume 74 ml LVOT CO 5.0 l/min LVOT CI 2.6 l/min/m2 Pulmonic Valve Name Value Normal PV Doppler PV Peak Gradient 3 mmHg Mitral Valve Name Value Normal MV Doppler
== END 2023-08-26 07:49 | disposition home or self-care (01) ==
LOC: ANHCARD 07:49
PROVIDERS: PCP Internal Medicine; Visit Provider Internal Medicine Cardiovascular Disease
DX: I48.91 Unspecified atrial fibrillation (principal); R93.1 Abnormal findings on diagnostic imaging of heart and coronary circulation; I35.8 Other nonrheumatic aortic valve disorders; I35.1 Nonrheumatic aortic (valve) insufficiency
CPT/HCPCS: 93306

== ENCOUNTER 2024-01-12 09:59 | Outpatient (CLI) | payer OTHER, SELFPAY ==
[2024-01-12 12:43] LABS: Basophils Absolute Auto 0.1 K/mm3 (0.0-0.1); Basophils Percent Auto 1.1 % (0.2-1.2); Eosinophils Absolute Auto 0.2 K/mm3 (0-0.3); Eosinophils Percent Auto 3.2 % (0-4.4); Hematocrit 44.1 % (37.0-47.0); Hemoglobin 14.3 g/dL (12.0-15.0); Immature Granulocyte Absolute 0.01 K/mm3 (0.00-0.031); Immature Granulocyte Percent A 0.2 % (0-0.5); Lymphocytes Absolute Auto 1.67 K/mm3 (0.9-3.2); Lymphocytes Percent Auto 36.1 % (18.3-44.2); Mean Corpuscular HGB Conc 32.4 g/dl (32-36); Mean Corpuscular Hemoglobin 32.2 pg (26-34); Mean Corpuscular Volume 99.3 fl (80-100); Mean Platelet Volume 10.1 fl (7.4-10.4); Monocytes Absolute Auto 0.4 K/mm3 (0.1-0.6); Monocytes Percent Auto 7.8 % (2.6-8.5); Neutrophils Absolute Auto 2.4 K/mm3 (1.3-6.7); Neutrophils Percent Auto 51.6 % (45.5-73.1); Platelet Count Result 245 k/mm3 (150-375); Red Blood Count 4.44 M/mm3 (4.2-5.4); White Blood Count 4.6 K/mm3 (4.5-10.0)
[2024-01-12 13:07] LABS: Alanine Aminotransferase 30 U/L (6-35); Albumin Level 4.7 g/dL (3.5-5.1); Alkaline Phosphatase 61 U/L (38-126); Anion Gap 8 mmol/L (4-12); Aspartate Amino Transferase 43 U/L (14-36); Bilirubin,Total 0.5 mg/dL (0.2-1.3); Blood Urea Nitrogen 17 mg/dL (7-17); Calcium 9.3 mg/dL (8.4-10.2); Carbon Dioxide 28 mmol/L (22-30); Chloride 105 mmol/L (98-107); Cholesterol 222 mg/dL (0-200); Estimated Glomerular Filt Rate > 60; Glucose 98 mg/dL (65-110); HDL Direct 38 mg/dL; Sodium 141 mmol/L (137-145); Triglycerides 318 mg/dL (<150)
[2024-01-12 13:18] LABS: LDL Cholesterol Direct 128 mg/dL
[2024-01-12 13:30] LABS: Hemoglobin A1C 5.5 % (<5.7)
[2024-01-12 14:22] LABS: Vitamin D 25 Hydroxy 17.7 ng/mL
== END 2024-01-12 10:00 | disposition home or self-care (01) ==
LOC: ANHGOSHLAB 10:01
PROVIDERS: PCP Clinical Nurse Specialist; Visit Provider Clinical Nurse Specialist
DX: E78.5 Hyperlipidemia, unspecified (principal); I10 Essential (primary) hypertension; I48.0 Paroxysmal atrial fibrillation; E55.9 Vitamin D deficiency, unspecified; R73.09 Other abnormal glucose
CPT/HCPCS: 36415; 80053; 80061; 82306; 83036; 85025

== ENCOUNTER 2025-02-01 07:48 | Outpatient (CLI) | payer OTHER, SELFPAY | END 2025-02-01 07:49 | disposition home or self-care (01) | LOC: ANHAUDIO 07:49 | PROVIDERS: PCP Clinical Nurse Specialist; Visit Provider Clinical Nurse Specialist | DX: H90.5 Unspecified sensorineural hearing loss (principal); H93.13 Tinnitus, bilateral; H92.01 Otalgia, right ear; R42 Dizziness and giddiness; H74.8X3 Other specified disorders of middle ear and mastoid, bilateral; H73.893 Other specified disorders of tympanic membrane, bilateral; Z82.2 Family history of deafness and hearing loss | CPT/HCPCS: 92553; 92555; 92567 ==

== ENCOUNTER 2025-02-01 10:08 | Outpatient (CLI) | payer OTHER, SELFPAY ==
--- NOTE | ~2025-02-01 | XR_ITS ---
Left Knee Technique: AP, lateral, and sunrise views were obtained. Clinical History: Pain Findings: No fracture or dislocation is seen. Osseous alignment is anatomic. Moderate to advanced tri compartmental degenerative joint disease is present. Soft tissues are unremarkable. No joint effusion is seen. Impression: Moderate to advanced tricompartmental degenerative joint disease. Reviewed, dictated and finalized at location . Impression: Moderate to advanced tricompartmental degenerative joint disease.
[2025-02-01 10:51] LABS: Hematocrit 43.3 % (37.0-47.0); Hemoglobin 14.2 g/dL (12.0-15.0); Immature Granulocyte Percent A 0.2 % (0-0.5); Lymphocytes Absolute Auto 1.90 K/mm3 (0.9-3.2); Mean Corpuscular HGB Conc 32.8 g/dl (32-36); Mean Corpuscular Hemoglobin 32.1 pg (26-34); Mean Corpuscular Volume 98.0 fl (80-100); Nucleated Red Blood Cells Absolute Auto 0.000 K/mm3 (0.0-0.012); Nucleated Red Blood Cells Perc 0.0 % (0.0-0.2); Platelet Count Result 227 k/mm3 (150-375); Red Blood Count 4.42 M/mm3 (4.2-5.4); White Blood Count 4.9 K/mm3 (4.5-10.0)
[2025-02-01 11:06] LABS: Alanine Aminotransferase 27 U/L (6-35); Albumin Level 4.7 g/dL (3.5-5.1); Alkaline Phosphatase 52 U/L (38-126); Anion Gap 10 mmol/L (4-12); Aspartate Amino Transferase 31 U/L (14-36); Bilirubin,Total 0.6 mg/dL (0.2-1.3); Blood Urea Nitrogen 15 mg/dL (7-17); Calcium 9.5 mg/dL (8.4-10.2); Carbon Dioxide 24 mmol/L (22-30); Chloride 105 mmol/L (98-107); Cholesterol 158 mg/dL (0-200); Estimated Glomerular Filt Rate > 60; Glucose 110 mg/dL (65-110); HDL Direct 42 mg/dL; Potassium 4.1 mmol/L (3.4-5.0); Sodium 139 mmol/L (137-145); Total Protein 8.1 g/dL (6.3-8.2); Triglycerides 241 mg/dL (<150)
[2025-02-01 11:15] LABS: Hemoglobin A1C 5.7 % (<5.7)
[2025-02-01 11:18] LABS: MALB Creatinine Ratio 10.7 mg/g (0-30)
[2025-02-01 11:55] LABS: Vitamin B12 260.0 pg/mL (239-931)
== END 2025-02-01 10:09 | disposition home or self-care (01) ==
PROVIDERS: PCP Clinical Nurse Specialist; Visit Provider Clinical Nurse Specialist
DX: M17.12 Unilateral primary osteoarthritis, left knee (principal); E78.2 Mixed hyperlipidemia; I48.0 Paroxysmal atrial fibrillation; I48.91 Unspecified atrial fibrillation; I10 Essential (primary) hypertension; R73.01 Impaired fasting glucose
CPT/HCPCS: 36415; 73562; 80053; 80061; 82043; 82607; 83036; 85025